=== PATIENT | male | born 1970 | race Caucasian/White ===

== ENCOUNTER 2018-02-21 12:51 | Observation (INO) ==
--- NOTE | 2018-02-21 13:22 | Emergency Department Note ---
Disposition Referrals: Nora Gutierres CNP [Primary Care Provider] - General Adult HPI - General Chief complaint: ED Chest Pain Stated complaint: back pain, high blood pressure Time Seen by Provider: 02/21/18 13:05 Source: patient Limitations: no limitations - History of Present Illness Pain Scale: 4 - Related Data Previous Rx's Medication Instructions Recorded Diclofenac Sodium [Voltaren] 50 mg PO BID #30 tablet. 12/22/16 PredniSONE [Deltasone] 20 mg PO DAILY #12 tablet 12/22/16 Allergies Allergy/AdvReac Type Severity Reaction Status Date / Time No Known Allergies Allergy Verified 12/22/16 13:04 Past Medical History - Past Medical History Medical history: Reports: non-contributory, hypertension Surgical history: Reports: no surgical history Psychiatric history: Reports: no psych history - Social History Smoking Status: Never smoker Smokeless Tobacco Status: No Alcohol use: Reports: none Drug use: Reports: none Physical Exam - General Limitations: no limitations General appearance: alert, anxious Course Vital Signs Temperature 98.5 F 02/21/18 12:58 Pulse Rate 82 02/21/18 12:58 Respiratory Rate 20 02/21/18 12:58 Blood Pressure 147/93 02/21/18 12:58 O2 Sat by Pulse Oximetry 94 02/21/18 12:58 Temperature 98.5 F 02/21/18 12:58 Pulse Rate 74 02/21/18 13:16 Respiratory Rate 16 02/21/18 13:16 Blood Pressure 144/105 02/21/18 13:16 O2 Sat by Pulse Oximetry 94 02/21/18 13:16 Oxygen Delivery Oxygen Delivery Room Air
[2018-02-21] MEDS ORDERED: Isovue-370 500 ML INFUS..BTL IV ONE (13:24)
[2018-02-21] MEDS ORDERED: 0.9 % Sodium Chloride 1,000 ML IVC ONE (13:30)
[2018-02-21] MEDS ORDERED: Ondansetron 4 MG/2 ML VIAL IVP ONE (13:31)
--- NOTE | 2018-02-21 13:31 | Emergency Department Note ---
Disposition Clinical Impression: Chest pain Qualifiers: Chest pain type: unspecified Qualified Code(s): R07.9 - Chest pain, unspecified Back pain Qualifiers: Back pain location: back pain in unspecified location Chronicity: unspecified Back pain laterality: left Qualified Code(s): M54.9 - Dorsalgia, unspecified Disposition: Admitted As Inpatient Condition: Fair Referrals: Nora Gutierres [employer] [Primary Care Provider] - Forms: ED Satisfaction Letter Time of Disposition: 15:00 Chest Pain HPI - General Chief Complaint: ED Chest Pain Stated Complaint: back pain, high blood pressure Time Seen by Provider: 02/21/18 13:05 Source: patient Mode of arrival: ambulatory Limitations: no limitations Vital Signs Reviewed: Yes Nursing Notes Reviewed: Yes - History of Present Illness HPI Narrative: 47-year-old male with history of hypertension presents for sudden onset of back and shoulder pain. Patient states he feels that he is a sharp pain located in the back by his left scapula. Notes it was sudden onset that occurred approximately 2 hours prior to arrival. No history of trauma. Patient states that the pain does go down his left arm. Patient reports some nausea but no episodes of emesis. Patient reports some shortness of breath related the pain. Patient also notes some chest discomfort. Patient denies any abdominal pain. Patient denies history of heart attacks or strokes. Severity scale (1-10): 4 - Related Data Home Medications Medication Instructions Recorded Confirmed No Known Home Drugs 02/21/18 02/21/18 Allergies Allergy/AdvReac Type Severity Reaction Status Date / Time No Known Allergies Allergy Verified 12/22/16 13:04 All systems ED: reviewed and negative except as stated. Constitutional: Denies: fever Cardiovascular: Reports: chest pain Respiratory: Reports: dyspnea. Denies: cough Gastrointestinal: Reports: nausea. Denies: abdominal pain, vomiting Chest Pain PMH - Past Medical History Medical history: Reports: non-contributory, hypertension Surgical history: Reports: no surgical history Psychiatric history: Reports: no psych history - Social History Smoking Status: Never smoker Alcohol use: Reports: none Drug use: Reports: none Physical Exam - General Limitations: no limitations General appearance: alert, other (Appears uncomfortable) - Head Head exam: atraumatic, normocephalic, normal inspection - Eye Eye exam: Present: normal appearance, PERRL, EOMI - ENT ENT exam: normal exam, normal oropharynx, mucous membranes moist - Neck Neck exam: Present: normal inspection - Chest Chest inspection: Present: normal inspection, symmetric chest wall rise - Respiratory Respiratory exam: Present: normal lung sounds bilaterally. Absent: respiratory distress - Cardiovascular Cardiovascular exam: Present: regular rate, normal rhythm. Absent: systolic murmur - Abdominal Exam Abdominal exam: Present: soft, Non-Tender - Extremities Exam Extremities exam: Present: normal inspection. Absent: pedal edema - Expanded Upper Extremity Exam Shoulder exam: Present: normal inspection, full ROM. Absent: tenderness Arm exam: Present: normal inspection, full ROM. Absent: tenderness Elbow exam: Present: normal inspection, full ROM. Absent: tenderness Vascular exam: Normal: capillary refill, radial pulse - Back Exam Back exam: Present: normal inspection - Neurological Exam Neurological exam: Present: alert, oriented X3, CN II-XII intact - Skin Skin exam: Present: warm, dry, intact, normal color Course Course Narrative: Patient presents with back pain atraumatic. Patient will get CT angios of the chest abdomen pelvis. Patient will get basic cardiopulmonary screening evaluation. Disposition pending. - Reevaluation(s) Reevaluation #1: Patient seen and examined. Patient states he did get some relief with nitroglycerin. Awaiting CT results. Time: 14:33 Vital Signs Temperature 98.5 F 02/21/18 12:58 Pulse Rate 82 02/21/18 12:58 Respiratory Rate 20 02/21/18 12:58 Blood Pressure 147/93 02/21/18 12:58 O2 Sat by Pulse Oximetry 94 02/21/18 12:58 Temperature 98.5 F 02/21/18 12:58 Pulse Rate 60 02/21/18 14:30 Respiratory Rate 18 02/21/18 14:30 Blood Pressure 129/93 02/21/18 14:30 O2 Sat by Pulse Oximetry 97 02/21/18 14:30 Oxygen Delivery Oxygen Delivery Room Air Chest Pain - [facility] Narrative Medical decision making narrative: Patient presented uncomfortable. Complaining of back pain. Patient's back pain was atraumatic. Described as sharp. With left arm and neck pain. Prompted CTA chest abdomen pelvis given the patient's history and family history of aortic dissection. Patient had a negative CT scan. Patient's pain did not improve with nitroglycerin. Patient was given aspirin ultimately once dissection was ruled out. Patient EKG shows no acute changes. Negative troponin with only 2 hours of symptom onset. Patient labs are clinically unremarkable. Patient was aware that he is going to be admitted for chest pain. Patient's heart score moderate. Patient's symptoms are not consistent with pulmonary embolism. - Lab Data Lab results reviewed: Yes I reviewed the patient's lab results. Result diagrams: 02/21/18 13:20 02/21/18 13:20 Lab Results 02/21/18 02/21/18 02/21/18 Range/Units 13:20 13:20 13:20 WBC (4.3-11.1) K/mcL RBC (4.19-5.50) M/mcL Hgb (12.9-16.9) g/dL Hct (37.5-50.1) % MCV (83.0-100.0) fL MCH (28.0-33.3) pg MCHC (31.6-35.5) g/dL RDW (11.5-14.5) % Plt Count (140-400) K/mcL MPV (9.4-12.4) fL Immature Gran % (0-4) % Seg Neutrophils % % Lymphocytes % % Monocytes % % Eosinophils % % Basophils % % Neutrophils # (1.6-8.9) K/mcL Lymphocytes # (0.6-4.6) K/mcL Monocytes # (0.0-1.3) K/mcL Eosinophils # (0.0-0.6) K/mcL Basophils # (0.0-0.2) K/mcL PT 11.2 (9.4-12.1) Seconds INR 1.0 APTT 28.8 (26.0-36.0) Seconds Sodium (136-145) mEq/L Potassium (3.5-5.1) mEq/L Chloride (98-107) mEq/L Carbon Dioxide (23-29) mEq/L BUN (6-20) mg/dL Creatinine (0.70-1.30) mg/dL Est GFR ( Amer) (> 60) Est GFR (Non-Af Amer) (> 60) BUN/Creatinine Ratio (6-26) Glucose (70-105) mg/dL Calculated Osmolality (280-300) Lactic Acid (0.5-2.2) mmol/L Calcium (8.6-10.3) mg/dL Troponin I (< 0.04) ng/mL B-Natriuretic Peptide 17 (Less than 100) pg/mL Lipase 38 (11-82) Units/L 02/21/18 02/21/18 02/21/18 Range/Units 13:20 13:20 13:20 WBC 6.6 (4.3-11.1) K/mcL RBC 5.77 H (4.19-5.50) M/mcL Hgb 16.0 (12.9-16.9) g/dL Hct 47.9 (37.5-50.1) % MCV 83.0 (83.0-100.0) fL MCH 27.7 L (28.0-33.3) pg MCHC 33.4 (31.6-35.5) g/dL RDW 13.1 (11.5-14.5) % Plt Count 235 (140-400) K/mcL MPV 10.1 (9.4-12.4) fL Immature Gran % 0.2 (0-4) % Seg Neutrophils % 61.2 % Lymphocytes % 26.4 % Monocytes % 9.5 % Eosinophils % 2.4 % Basophils % 0.3 % Neutrophils # 4.0 (1.6-8.9) K/mcL Lymphocytes # 1.7 (0.6-4.6) K/mcL Monocytes # 0.6 (0.0-1.3) K/mcL Eosinophils # 0.2 (0.0-0.6) K/mcL Basophils # 0.0 (0.0-0.2) K/mcL PT (9.4-12.1) Seconds INR APTT (26.0-36.0) Seconds Sodium 138 (136-145) mEq/L Potassium 4.2 (3.5-5.1) mEq/L Chloride 103 (98-107) mEq/L Carbon Dioxide 30 H (23-29) mEq/L BUN 15 (6-20) mg/dL Creatinine 1.05 (0.70-1.30) mg/dL Est GFR ( Amer) > 60 (> 60) Est GFR (Non-Af Amer) > 60 (> 60) BUN/Creatinine Ratio 14 (6-26) Glucose 128 H (70-105) mg/dL Calculated Osmolality 288 (280-300) Lactic Acid 1.3 (0.5-2.2) mmol/L Calcium 9.3 (8.6-10.3) mg/dL Troponin I < 0.03 (< 0.04) ng/mL B-Natriuretic Peptide (Less than 100) pg/mL Lipase (11-82) Units/L - Radiology Data Radiology results reviewed: Yes I reviewed the patient's radiology results. Abdomen/Pelvis CTA 02/21/18 13:24 IMPRESSION: No CT evidence of aortic dissection. Fatty infiltration of the liver. Prostate gland enlargement. D/ / Merry Hopkins Cha, MD / Merry Hopkins Cha, MD Interpreting Provider: Merry Hopkins Cha, MD Chest CTA 02/21/18 13:24 IMPRESSION: No CT evidence of aortic dissection. Fatty infiltration of the liver. Prostate gland enlargement. D/ / Merry Hopkins Cha, MD / Merry Hopkins Cha, MD Interpreting Provider: Merry Hopkins Cha, MD - EKG Data EKG attestation: Yes I reviewed and interpreted this EKG. EKG shows normal: sinus rhythm Rate: normal Rhythm: NSR [place]/QRS: normal Interpretation: no acute changes, unchanged when compared to prior tracing (date ), nonspecific ST-T wave changes Heart Score - Score History: Moderately Suspicious EKG: Non Specific repolarisation Disturbance Age: 45-65 Risk Factors: 1-2 risk factors Troponin: Less than normal limit HEART Score Total: 4 S.B.A.R. - S.B.A.R. Situation: Demographics Background: Presenting Complaint Assessment: Vital Signs, Course and respsone to treatment, Patient/Family Expectation Recommendation: Barrier(s) to disposition, Recommendation based on pending studies, treatments, or consults S.B.A.R. Report Given to: Dr. Max Mejia Repor Time: 15:00
[2018-02-21 13:36] LABS: Basophils % 0.3 %; Eosinophils # 0.2 K/mcL (0.0-0.6); Eosinophils % 2.4 %; Hematocrit 47.9 % (37.5-50.1); Immature Granulocytes % 0.2 % (0-4); Lymphocytes # 1.7 K/mcL (0.6-4.6); Lymphocytes % 26.4 %; Mean Corpuscular HGB Conc 33.4 g/dL (31.6-35.5); Mean Corpuscular Hemoglobin 27.7 pg (28.0-33.3); Mean Platelet Volume 10.1 fL (9.4-12.4); Monocytes # 0.6 K/mcL (0.0-1.3); Monocytes % 9.5 %; Platelet Count 235 K/mcL (140-400); Red Blood Count 5.77 M/mcL (4.19-5.50); Red Cell Distribution Width 13.1 % (11.5-14.5); Segmented Neutrophils % 61.2 %
[2018-02-21 13:44] LABS: Prothrombin Time 11.2 Seconds (9.4-12.1)
[2018-02-21 13:47] LABS: Activated Partial Thrombo Time 28.8 Seconds (26.0-36.0)
[2018-02-21] MEDS ORDERED: ISOVUE-370 100 ML INFUS..BTL IV ONE (13:49)
[2018-02-21 14:00] LABS: BUN/Creatinine Ratio 14 (6-26); Blood Urea Nitrogen 15 mg/dL (6-20); Calcium 9.3 mg/dL (8.6-10.3); Carbon Dioxide 30 mEq/L (23-29); Chloride 103 mEq/L (98-107); Glucose 128 mg/dL (70-105); Osmolality,Calculated 288 (280-300); Potassium 4.2 mEq/L (3.5-5.1); Sodium 138 mEq/L (136-145); eGFR For Non-African Americans > 60 (> 60)
[2018-02-21 14:01] LABS: Troponin I < 0.03 ng/mL (< 0.04)
[2018-02-21] MEDS: Nitroglycerin 0.4 MG TAB.SUBL SL ONE ×2 (14:01→14:33)
[2018-02-21] MEDS ORDERED: Aspirin 325 MG TABLET PO ONE (14:48)
--- NOTE | 2018-02-21 15:53 | Emergency Department Note ---
Disposition Clinical Impression: Chest pain Qualifiers: Chest pain type: unspecified Qualified Code(s): R07.9 - Chest pain, unspecified Back pain Qualifiers: Back pain location: back pain in unspecified location Chronicity: unspecified Back pain laterality: left Qualified Code(s): M54.9 - Dorsalgia, unspecified Disposition: Admitted As Inpatient Condition: Fair Referrals: Nora Gutierres [employer] [Primary Care Provider] - Forms: ED Satisfaction Letter General Adult HPI - General Chief complaint: ED Chest Pain Stated complaint: back pain, high blood pressure Time Seen by Provider: 02/21/18 13:05 Source: patient Mode of arrival: ambulatory Limitations: no limitations - History of Present Illness Pain Scale: 4 - Related Data Home Medications Medication Instructions Recorded Confirmed No Known Home Drugs 02/21/18 02/21/18 Allergies Allergy/AdvReac Type Severity Reaction Status Date / Time No Known Allergies Allergy Verified 12/22/16 13:04 Constitutional: Denies: fever Cardiovascular: Reports: chest pain Respiratory: Reports: dyspnea. Denies: cough Gastrointestinal: Reports: nausea. Denies: abdominal pain, vomiting Past Medical History - Past Medical History Medical history: Reports: non-contributory, hypertension Surgical history: Reports: no surgical history Psychiatric history: Reports: no psych history - Social History Smoking Status: Never smoker Smokeless Tobacco Status: No Alcohol use: Reports: none Drug use: Reports: none Physical Exam - General Limitations: no limitations General appearance: alert, other (Appears uncomfortable) Course Vital Signs Temperature 98.5 F 02/21/18 12:58 Pulse Rate 82 02/21/18 12:58 Respiratory Rate 20 02/21/18 12:58 Blood Pressure 147/93 02/21/18 12:58 O2 Sat by Pulse Oximetry 94 02/21/18 12:58 Temperature 98.5 F 02/21/18 12:58 Pulse Rate 60 02/21/18 14:30 Respiratory Rate 18 02/21/18 14:30 Blood Pressure 129/93 02/21/18 14:30 O2 Sat by Pulse Oximetry 97 02/21/18 14:30 Oxygen Delivery Oxygen Delivery Room Air Medical Decision Making - Lab Data Result diagrams: 02/21/18 13:20 02/21/18 13:20 Lab Results 02/21/18 02/21/18 02/21/18 Range/Units 13:20 13:20 13:20 WBC (4.3-11.1) K/mcL RBC (4.19-5.50) M/mcL Hgb (12.9-16.9) g/dL Hct (37.5-50.1) % MCV (83.0-100.0) fL MCH (28.0-33.3) pg MCHC (31.6-35.5) g/dL RDW (11.5-14.5) % Plt Count (140-400) K/mcL MPV (9.4-12.4) fL Immature Gran % (0-4) % Seg Neutrophils % % Lymphocytes % % Monocytes % % Eosinophils % % Basophils % % Neutrophils # (1.6-8.9) K/mcL Lymphocytes # (0.6-4.6) K/mcL Monocytes # (0.0-1.3) K/mcL Eosinophils # (0.0-0.6) K/mcL Basophils # (0.0-0.2) K/mcL PT 11.2 (9.4-12.1) Seconds INR 1.0 APTT 28.8 (26.0-36.0) Seconds Sodium (136-145) mEq/L Potassium (3.5-5.1) mEq/L Chloride (98-107) mEq/L Carbon Dioxide (23-29) mEq/L BUN (6-20) mg/dL Creatinine (0.70-1.30) mg/dL Est GFR ( Amer) (> 60) Est GFR (Non-Af Amer) (> 60) BUN/Creatinine Ratio (6-26) Glucose (70-105) mg/dL Calculated Osmolality (280-300) Lactic Acid (0.5-2.2) mmol/L Calcium (8.6-10.3) mg/dL Troponin I (< 0.04) ng/mL B-Natriuretic Peptide 17 (Less than 100) pg/mL Lipase 38 (11-82) Units/L 02/21/18 02/21/18 02/21/18 Range/Units 13:20 13:20 13:20 WBC 6.6 (4.3-11.1) K/mcL RBC 5.77 H (4.19-5.50) M/mcL Hgb 16.0 (12.9-16.9) g/dL Hct 47.9 (37.5-50.1) % MCV 83.0 (83.0-100.0) fL MCH 27.7 L (28.0-33.3) pg MCHC 33.4 (31.6-35.5) g/dL RDW 13.1 (11.5-14.5) % Plt Count 235 (140-400) K/mcL MPV 10.1 (9.4-12.4) fL Immature Gran % 0.2 (0-4) % Seg Neutrophils % 61.2 % Lymphocytes % 26.4 % Monocytes % 9.5 % Eosinophils % 2.4 % Basophils % 0.3 % Neutrophils # 4.0 (1.6-8.9) K/mcL Lymphocytes # 1.7 (0.6-4.6) K/mcL Monocytes # 0.6 (0.0-1.3) K/mcL Eosinophils # 0.2 (0.0-0.6) K/mcL Basophils # 0.0 (0.0-0.2) K/mcL PT (9.4-12.1) Seconds INR APTT (26.0-36.0) Seconds Sodium 138 (136-145) mEq/L Potassium 4.2 (3.5-5.1) mEq/L Chloride 103 (98-107) mEq/L Carbon Dioxide 30 H (23-29) mEq/L BUN 15 (6-20) mg/dL Creatinine 1.05 (0.70-1.30) mg/dL Est GFR ( Amer) > 60 (> 60) Est GFR (Non-Af Amer) > 60 (> 60) BUN/Creatinine Ratio 14 (6-26) Glucose 128 H (70-105) mg/dL Calculated Osmolality 288 (280-300) Lactic Acid 1.3 (0.5-2.2) mmol/L Calcium 9.3 (8.6-10.3) mg/dL Troponin I < 0.03 (< 0.04) ng/mL B-Natriuretic Peptide (Less than 100) pg/mL Lipase (11-82) Units/L Attestation Statement - Attestation Attestation: I examined this patient and my medical decision-making was reviewed with the Resident Physician. I agree with the documented findings, disposition and treatment plan as described except to the extent set forth below. 47 year old male presents to the ED with complaints of HTN and back pain and CTA chest/ab/p negative for dissection although he has concerning risk factors and was symptomatic and hypertensive with moderate suspcions for ACS we will admit to medicine for chest pain rule out study
[2018-02-21] MEDS ORDERED: Naloxone 0.4 MG/ML INJ IVP PRN (18:00)
--- NOTE | 2018-02-21 18:12 | Internal Med History&Physical ---
Date of Encounter: 02/21/18 Time of Encounter: 16:15 Internal Medicine - H&P: HPI Chief complaint: Back Pain, Chest Pain Admitted From: Home Plans for Post Hospital Care: Home History of present illness: Mr. Richardson is a 47 year old male with no significant past medical history or daily medications who presents for sudden onset stabbing 10/10 left sided scapula pain radiating to his left chest, left neck, and left arm. Pain started while sitting watching tv. Pain was associated with shortness of breath , nausea, and diaphoresis. Denies any alleviating or exacerbating factors. No treatment prior to arrival. Pain remained fairly constant until receiving aspirin, nitro, and zofran in ER and now he is reporting his pain is almost completely resolved. Reports previous stress test around eight years ago which was normal. No previous cardiac problems. Past Med Surg Social Fam HX - Past Medical History Medical history: non-contributory Additional medical history: pericarditis Psychiatric history: no psych history - Past Surgical History Surgical History: no surgical history - Social History Smoking Status: Former smoker Smokeless Tobacco Status: No Alcohol use: none Drug use: none - Family History Mother Living Status: Still Living Hx Family Cardiac Disorders: Yes Hx Family Endocrine Disorder: Yes Father Living Status: Age at : 54 Cause of : Aortic tear Internal Medicine - H&P: Meds No Known Home Drugs 02/21/18 [History] 3 Allergy/AdvReac Type Severity Reaction Status Date / Time No Known Allergies Allergy Verified 12/22/16 13:04 All Systems PM: A 10-system review of systems was performed and is negative for pertinent findings except as documented above in the HPI. - Constitutional Vitals: Temp Pulse Resp BP Pulse Ox 98.0 F 62 18 143/91 96 02/21/18 17:05 02/21/18 17:05 02/21/18 17:05 02/21/18 17:05 02/21/18 17:05 Exam: General: Alert and oriented. Skin:Normal color, no rash, no lesions. HEENT:Pupils equal, round and reactive. Cardiovascular:Normal S1 & S2, no rubs, murmurs or gallops. No JVD. Pulse regular. Lungs:Normal breath sounds, no wheezes or crackles. Abdomen:Soft, non-tender, no rigidity. Extremities:No deformity, no edema or tenderness, no joint swelling or clubbing. Neurological:Normal cognition and motor skills. Pulses:Carotid and radial pulses normal +2. Rest of the physical exam is non contributory. 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 Initial troponin negative in ER, serial troponins ordered. Cardiac diet. NPO at midnight. Echocardiogram ordered. Stress test in a.m. Qualifiers: Chest pain type: unspecified Qualified Code(s): R07.9 - Chest pain, unspecified (2) Nausea Current Visit: Yes Status: Acute Assessment and plan: Zofran as needed. Encourage oral intake. - Time Spent With Patient Total time spent is greater than 50% in coordination of care (as documented) at patient's floor/unit and/or counseling patient:
[2018-02-22 04:01] LABS: Basophils % 0.6 %; Eosinophils # 0.3 K/mcL (0.0-0.6); Eosinophils % 4.1 %; Hematocrit 43.8 % (37.5-50.1); Hemoglobin 14.6 g/dL (12.9-16.9); Immature Granulocytes % 0.3 % (0-4); Lymphocytes # 1.9 K/mcL (0.6-4.6); Mean Corpuscular HGB Conc 33.3 g/dL (31.6-35.5); Mean Corpuscular Hemoglobin 27.5 pg (28.0-33.3); Mean Corpuscular Volume 82.6 fL (83.0-100.0); Mean Platelet Volume 10.2 fL (9.4-12.4); Monocytes # 0.6 K/mcL (0.0-1.3); Monocytes % 8.9 %; Neutrophils # 3.4 K/mcL (1.6-8.9); Platelet Count 217 K/mcL (140-400); Red Cell Distribution Width 13.2 % (11.5-14.5); Segmented Neutrophils % 55.1 %
[2018-02-22 04:24] LABS: BUN/Creatinine Ratio 14 (6-26); Blood Urea Nitrogen 15 mg/dL (6-20); Carbon Dioxide 27 mEq/L (23-29); Chloride 104 mEq/L (98-107); Glucose 119 mg/dL (70-105); Osmolality,Calculated 286 (280-300); Potassium 4.2 mEq/L (3.5-5.1); Sodium 137 mEq/L (136-145); eGFR For Non-African Americans > 60 (> 60)
[2018-02-22] MEDS ORDERED: *HR* Enoxaparin 30 MG/0.3 ML SYRINGE SQ SCH (06:00)
[2018-02-22 08:18] LABS: Chol/HDL Ratio 6.1 (0-4.9); Cholesterol 212 mg/dL (< 200); HDL Cholesterol 35 mg/dL (40-59); LDL Cholesterol,Calculated 113 mg/dL (0-99); Triglycerides 320 mg/dL (< 150)
[2018-02-22] MEDS ORDERED: Nitroglycerin 0.4 MG TAB.SUBL SL PRN (10:34)
[2018-02-22 10:52] VITALS: BP 139/70
[2018-02-22 11:18] LABS: Estimated Average Glucose 146 mg/dl; Hemoglobin A1C 6.7 %
--- NOTE | 2018-02-22 11:23 | Discharge Summary ---
- NOTES TO OUTPATIENT PROVIDER Notes to Outpatient Provider: Patient was admitted for atypical chest pain and underwent stress test on 02/22 which was negative for ischemia/infarct. Nevertheless, he had significant family history of CAD as well as newly diagnosed HLD and DM and was therefore started on ASA and lipitor. He was advised to return to the ED if chest pain recurs or develops shortness of breath , palpitation, orthopnea, PND, nausea/vomiting, or diaphoresis. Orders not resulted at time of discharge: Pending orders 02/21/18 18:03 EV echocardiogram Routine 02/22/18 06:00 NM toy perf SPECT multi [NM] Routine Date of Encounter: 02/22/18 Time of Encounter: 09:30 - Discharge Diagnosis (1) Chest pain Priority: Primary Status: Acute Qualifiers: Chest pain type: unspecified Qualified Code(s): R07.9 - Chest pain, unspecified (2) Nausea Priority: Secondary Status: Acute Hospital course: Mr. Richardson is a 47 year old male who was admitted for atypical chest pain and underwent stress test on 02/22 which was negative for ischemia/infarct. Nevertheless, he had significant family history of CAD as well as newly diagnosed HLD and DM and was therefore started on ASA and lipitor. He was advised to return to the ED if chest pain recurs or develops shortness of breath , palpitation, orthopnea, PND, nausea/vomiting, or diaphoresis. - Time Spent with Patient Total time spent providing and/or coordinating discharge services: - Discharge Medications Prescriptions: Aspirin [Lo-Dose Aspirin EC] 81 mg PO DAILY #30 tablet. Atorvastatin [Lipitor] 40 mg PO HS #30 tablet Nitroglycerin [Nitrostat] 0.4 mg SL Q1-2H PRN #30 tab.subl PRN Reason: Chest Pain Home Medications: Aspirin [Lo-Dose Aspirin EC] 81 mg PO DAILY #30 tablet. 02/22/18 [Rx] Atorvastatin [Lipitor] 40 mg PO HS #30 tablet 02/22/18 [Rx] Nitroglycerin [Nitrostat] 0.4 mg SL Q1-2H PRN #30 tab.subl 02/22/18 [Rx] Allergies/Adverse Reactions: 3 Allergy/AdvReac Type Severity Reaction Status Date / Time No Known Allergies Allergy Verified 12/22/16 13:04 Date of admission: 02/21/18 16:22 Primary care physician: Nora Gutierres CNP - Constitutional Vitals: Temp Pulse Resp BP Pulse Ox 97.7 F 75 16 139/70 96 02/22/18 10:48 02/22/18 10:48 02/22/18 10:48 02/22/18 10:48 02/22/18 10:48 Exam: General: Alert and oriented, not in acute distress. Cardiovascular:Normal S1 & S2, No JVD. Pulse regular. Lungs: clear to auscultation, no wheezes/rales Abdomen:Soft, non-tender, no rigidity. Extremities:No deformity or swelling Neurological:Normal cognition and motor skills. Non-focal - Patient Status Disposition: Home, Self-Care Condition: Fair - Discharge Instructions Instructions: Chest Pain (DC) Follow Up With: Nora Gutierres CNP [Primary Care Provider] - 02/26/18 1:00 pm Additional Instructions: Newly diagnosed HLD and DM. Not started on metformin at the time of discharge as A1c was 6.7. Emphasized the importance of dietary and exercise management in DM. - Diet and Activity Activity: resume usual activities as tolerated Diet: diabetic diet
--- NOTE | 2018-02-22 17:12 | Electrocardiograph Report ---
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
--- NOTE | 2018-02-22 17:23 | Electrocardiograph Report ---
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
[2018-02-23] MEDS ORDERED: *HR* Enoxaparin 40 MG/0.4 ML SYRINGE SQ SCH (06:00)
== END 2018-02-22 20:19 | disposition home or self-care (01) ==
LOC: 3BNU 12:51 → EMEROOARM 12:51 → SUATTDRO 16:22 → 3BNU 16:56
PROVIDERS: ADMIT Internal Medicine; ATTEND Internal Medicine